=== PATIENT | male | born 1950 | race Caucasian/White ===

== ENCOUNTER 2016-10-10 13:27 | Observation (INO) | payer MEDICARE, OTHER ==
[2016-10-10] VITALS (7 sets, daily range): BP systolic 145–197; BP diastolic 79–112; PULSE 65–86; RESP 18–20; O2SAT 93–99
[~2016-10-10] VITALS: Ht 185.4 cm; Wt 111.5 kg
--- NOTE | 2016-10-10 13:34 | ED.REPORT ---
HPI-Stroke / CVA Oct 10, 2016 ED Provider: Grey Carr Patient is a 65 year old male who presents to the ED via EMS complaining of a possible stroke. At 1230 today he felt his R jaw start to go numb. The numbness progressed up his face and EMS measured his BP consistently over 200. He denies chest pain, headache, lightheadedness, or any other symptoms. His father had a stroke at age 62. He took 2 full strength aspirin at 1235. Nursing Notes Stated Complaint: POSSIBLE STROKE Nursing Notes Reviewed: Yes Allergies: Coded Allergies: Qnhwtbf-[id number]-Nfu Reductase Inhibitor (Verified Allergy, Unknown, 10/10/16) Scheduled Aspirin (Aspirin) 81 Mg Tablet 81 MG PO DAILY (Reported) Fenofibrate Nanocrystallized (Fenofibrate) 145 Mg Tablet 160 MG PO DAILY ( Reported) Lisinopril (Lisinopril) 20 Mg Tablet 20 MG PO DAILY (Reported) Scheduled PRN Methocarbamol (Methocarbamol) 750 Mg Tablet 750 MG PO QID PRN PRN For Spasm ( Reported) oxyCODONE (oxyCODONE) 5 Mg Tablet 5 MG PO Q4H PRN PRN For Pain (Reported) Miscellaneous Medications Docusate Calcium (Stool Softener) 240 Mg Capsule 240 MG PO (Reported) Om-3/Dha/Epa/Fish Oil/Vit D3 (Fish Oil + Vitamin D-3 Softgel) 1 Each Capsule 1 EACH PO (Reported) Polyethylene Glycol 3350 (Miralax) 17 Gm Powd.pack 17 GM PO (Reported) Sildenafil Citrate (Sildenafil) 20 Mg Tablet 100 MG PO (Reported) General Time Seen by Provider: 13:34 Chief Complaint Numbness Face right Hx Obtained From: Patient, EMS Arrived By: Ambulance Time last known well 1230 Sudden in Onset?: Yes Progression Since Onset: Gradually improving Risk Factors TPA was not indicated due to a stroke scale score of zero. 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) Horizontal EO Movements: None (0) Visual Akins: No visual loss (0) Facial Palsy: Normal symmetry (0) Right Arm Motor Drift (10s): No drift 10 sec (0) Left Arm Motor Drift (10s): No drift 10 sec (0) Right Leg Motor Drift (5s): No drift 5 sec (0) Left Leg Motor Drift (5s): No drift 5 sec (0) Limb Ataxia FNF/Heel-Edan: No ataxia (0) Sensation (Arms/Legs/Face): No sensory loss (0) Language Aphasia: No aphasia, normal (0) Dysarthria: No dysarthria, normal (0) NIHSS Score: 0 Time NIHSS Performed: 13:46 Date NIHSS Performed: Oct 10, 2016 )( CVA Risk Stratification Age >60 EtOH use Hyperlipidemia HypertensionNo Anticoag/bleed diathesis, No Atrial fibrillation, No Clotting disorder, No Diabetes mellitus, No Oral contraceptive, No Prior CVA/TIA, No Smoking Risk factors reviewed Past Medical History Past Medical History Reports: Hyperlipidemia, Hypertension, Denies: Cancer, Congestive heart failure, Coronary artery disease, Diabetes mellitus Past Surgical History Denies Smoking History Unknown if Ever Smoker Social History Alcohol Use: "Social" Drug Use: Denies drug use Other Social History: Good social support, Ambulatory Status Independent Review of Systems Cardiovascular: Denies: Chest pain Neurologic: Reports: Numbness (R face), Denies: Headache, Lightheaded Complete sys rev & neg: except as marked. Physical Exam Initial Vital Signs Vital Signs (First) Date Time Temp Pulse Resp B/P Pulse Ox O2 Delivery O2 Flow Rate FiO2 10/10/16 13:52 36.6 86 20 197/112 99 Nasal Cannula 2 Initial VS: Reviewed, Vital signs abnormal Abdomen / GI: Soft, Non-tender Skin: Warm, Dry Psychiatric: Mood/affect normal, Behavior normal, Normal thought content General/Constitutional: Awake, Alert, Well developed Behavior: Positive: Anxious Head / Eyes: Atraumatic, Normocephalic, PERRL, EOMI, No nystagmus Neck: Atraumatic, Supple, Full range of motion Respiratory / Chest: No respiratory distress Cardiovascular: Heart rate NL, Regular rhythm, Heart sounds NL Neurologic: Oriented X3, Speech NL Interpretation & Diagnostics Lab Results Interpretation Result Diagram: 10/10/16 1345 10/10/16 1345 Test 10/10/16 13:45 White Blood Count 5.5th/mm3 (3.8-10.1) Red Blood Count 5.01mil/mm3 (4.40-5.80) Hemoglobin 14.7g/dL (13.8-17.2) Hematocrit 45.0% (41.0-50.0) Mean Corpuscular Volume 89.8fL (81-100) Mean Corpuscular Hemoglobin 29.3pg (27.0-35.0) Mean Corpuscular Hemoglobin Concent 32.7% (32.0-37.0) Red Cell Distribution Width 13.6% (12.3-15.4) Platelet Count 235bil/L (150-400) Neutrophils (%) (Auto) 50.1% (40-74) Lymphocytes (%) (Auto) 33.6% (14-46) Monocytes (%) (Auto) 10.8% (4-12) Eosinophils (%) (Auto) 4.2% (0-5) Basophils (%) (Auto) 0.9% (0-3) Prothrombin Time 10.3sec (8.1-12.5) Prothromb Time International Ratio 0.96ratio Activated Partial Thromboplast Time 27.3sec (22.8-33.0) Sodium Level 139mEq/L (134-144) Potassium Level 4.2mEq/L (3.5-5.2) Chloride Level 101mEq/L (97-108) Carbon Dioxide Level 23mmol/L (18-29) Blood Urea Nitrogen 23mg/dL (8-27) Creatinine 1.07mg/dL (0.76-1.27) Estimat Glomerular Filtration Rate 73mL/min (>59) Glucose Level 131mg/dL (60-99) Calcium Level 9.3mg/dL (8.5-10.1) Total Bilirubin 0.4mg/dL (0.0-1.2) Aspartate Amino Transf (AST/SGOT) 24U/L (0-50) Alanine Aminotransferase (ALT/SGPT) 26U/L (0-44) Alkaline Phosphatase 62U/L (25-160) Troponin T < 0.010ug/L (0.0-0.011) Total Protein 7.0g/dL (6.4-8.4) Albumin 4.3g/dL (3.4-5.0) Hold Pappas Top Tube Received (Received) ECG Interpretation ECG Interpretation: Sinus rate 67 Probable left atrial enlargement Abnormal R-wave progression, early transition Time: 14:20 Interpreted by: ED physician CT Head Interpretation CT BRAIN: IMPRESSION: No acute intracranial abnormalities. Findings were discussed with Dr. Carr by telephone at 1348 hr on 10/10/2016. This study fulfills neurological imaging criteria for inclusion or exclusion of acute stroke therapies based on available published neurological imaging guidelines. Dictated by: Jack Zamarripa M.D. on 10/10/2016 at 13:47 Approved by: Jack Zamarripa M.D. on 10/10/2016 at 13:49 Study: Head CT no contrast Interpretation / Wet Read by: Interpret - Radiologist Re-Eval/Medical Decision Re-Evaluation/Progress : Time of Eval: 15:04 )( Re-Eval Neurologic Exam: Alert Re-Evaluation/Progress Note: Discussed plan for discharge. Patient understands and agrees with plan. All questions addressed at this time. Consultation : Referral / Consult Name: Hieu Kat Consulted With: Hospitalist Call Returned at: 14:53 Hand Sprayer: Will see patient, Agrees with eval, Agrees with plan, Accepts admit Note: Discussed patient's case. Accepts admit. Counseled Regarding: Diagnosis, Lab results, Need for admission Patient Discharge & Departure Impression: Primary Impression: Right facial numbness Additional Impression: Stroke Disposition: ADMITTED TO HOSPITAL Referrals: Dean Scott MD (PCP) Sahil Muller MD Scribe Attestation Portions of this note were transcribed by Marysol Verduzco. I, Dr. Carr personally performed the history, physical exam and medical decision-making; I reviewed and confirmed the accuracy of the information in the transcribed note. Signed by: Marysol Verduzco 10/10/2016, [id number] copies to: Sahil Muller MD, Kirk H MD Oct 10, 2016 13:34 MARYSOL VERDUZCO Oct 10, 2016 13:54
[2016-10-10] MEDS ORDERED: Labetalol 5 mg/mL 4 mL Inj IVPUSH ONE (13:40)
--- NOTE | 2016-10-10 13:51 | DRSVH ---
PROCEDURE: CT BRAIN (TPA) ([id number]) INDICATIONS: 65-year-old male with stroke symptoms. TECHNIQUE: Noncontrast 4.5 mm thick angled axial sections acquired from the foramen magnum to the vertex, with c oronal reformats. COMPARISON: None. FINDINGS: Image quality: Excellent. CSF spaces: Basal cisterns are patent. No extra-axial fluid collections. Ventricles are normal in size and shape. Brain: No midline shift. No intracranial masses or hemorrhage. Charles-white matter interface is norm al. Skull and face: Calvarium and visualized facial bones are intact, without suspicious lesions. Sinuses: Visualized sinuses and mastoids are clear. IMPRESSION: No acute intracranial abnormalities. Findings were discussed with Dr. Carr by telephone at 1348 hr on 10/10/2016. This study fulfills neurological imaging criteria for inclusion or exclusion of acute stroke therapie s based on available published neurological imaging guidelines. Dictated by: Jack Zamarripa M.D. on 10/10/2016 at 13:47 Approved by: Jack Zamarripa M.D. on 10/10/2016 at 13:49
[2016-10-10 14:02] LABS: BASOPHILS % (AUTO) 0.9 % (0-3); EOSINOPHILS % (AUTO) 4.2 % (0-5); MONOCYTES % (AUTO) 10.8 % (4-12); Mean Corpuscular Hemoglobin 29.3 pg (27.0-35.0); Mean Corpuscular Volume 89.8 fL (81-100); NEUTROPHILS % (AUTO) 50.1 % (40-74); Platelet Count 235 bil/L (150-400)
[2016-10-10 14:13] LABS: INR 0.96 ratio
[2016-10-10 14:20] LABS: TROPONIN T < 0.010 ug/L (0.0-0.011)
[2016-10-10] MEDS ORDERED: OM-31CAP9 PO (14:21)
[2016-10-10] MEDS ORDERED: ASPI-973 PO (14:21)
[2016-10-10] MEDS ORDERED: DOCU240C41 PO (14:21)
[2016-10-10] MEDS ORDERED: FENO145T19 PO (14:21)
[2016-10-10] MEDS ORDERED: METH750T3 PO (14:21)
[2016-10-10] MEDS ORDERED: SILD20TA14 PO (14:21)
[2016-10-10] MEDS ORDERED: POLY17PO6 PO (14:21)
[2016-10-10] MEDS ORDERED: OXYC5TAB72 PO (14:21)
[2016-10-10] MEDS ORDERED: LISI-567 PO (14:21)
[2016-10-10] MEDS ORDERED: Alum-Mag Hydrox-Simeth 30 mL Suspension PO PRN ×2 (14:55→16:30)
[2016-10-10] MEDS ORDERED: Ondansetron 2 mg/mL 2 mL Inj IVPUSH PRN (14:55)
[2016-10-10] MEDS ORDERED: hydrALAZINE 20 mg/mL Inj IVPUSH PRN (16:30)
[2016-10-10] MEDS ORDERED: Ondansetron 2 mg/mL 2 mL Inj IV PRN (16:30)
[2016-10-10] MEDS: Heparin 5,000 Unit/mL Inj SUBQ SCH (16:30)
[2016-10-10] MEDS ORDERED: Polyethylene Glycol (PEG) 17 Gm Powder PO PRN (16:30)
--- NOTE | 2016-10-10 17:42 | PCM.HPMED ---
Subjective Date of Service Oct 10, 2016 Primary Provider: Admitting Physician: Hieu Kat Primary Care Physician: Sahil Muller MD Attending Physician: Hieu Kat Chief Complaint: right facial numbness History of Present Illness: 65 year old male with history of hypertension and hyperlipidemia presents with report of acute and transient episode of right facial numbness. He was sitting at home when around noon time he started feeling some numbness on the right lower cheek that start spreading up just below his right eye and below the right jewish. Because of his father's history of stroke he became concerned and presented to the ED where his workup was fairly unremarkable and thus was not found to be a candidate for TPA. Patient notes that his symptom resolved spontaneously after about 2 hours. He otherwise denies any other associated symptoms and denies any prior such history. He further denies any new medications recently. On presentation to the ED he was noted to have significant hypertension (197/112 ). He received a dose of Labetalol 20mg IV x 1 with noted improvement in his BP. Allergies Coded Allergies: Cupuoog-Tpp-Kbm Reductase Inhibitor (Verified Allergy, Unknown, 10/10/16) Home Medications Fenofibrate Nanocrystallized 160 Mg PO DAILY Lisinopril 20 Mg PO DAILY 30 Days Om-3/Dha/Epa/Fish Oil/Vit D3 (Fish Oil + Vitamin D-3 Softgel) 1 Each PO Sildenafil Citrate 100 Mg PO Aspirin 81 Mg PO DAILY Docusate Calcium (Stool Softener) 240 Mg PO Polyethylene Glycol 3350 (Miralax) 17 Gm PO Exam Vital Signs & I/O Vital Sign- Last 8 Hours Date Time Temp Pulse Resp B/P Pulse Ox O2 Delivery O2 Flow Rate FiO2 10/10/16 16:15 65 10/10/16 15:44 36.8 65 20 173/82 93 Room Air 10/10/16 15:12 36.6 69 18 147/79 97 Nasal Cannula 2 10/10/16 14:13 69 18 153/90 97 Nasal Cannula 2 10/10/16 13:52 36.6 86 20 197/112 99 Nasal Cannula 2 Lab & Micro Results Laboratory Tests Test 10/10/16 13:45 White Blood Count 5.5th/mm3 (3.8-10.1) Red Blood Count 5.01mil/mm3 (4.40-5.80) Hemoglobin 14.7g/dL (13.8-17.2) Hematocrit 45.0% (41.0-50.0) Mean Corpuscular Volume 89.8fL (81-100) Mean Corpuscular Hemoglobin 29.3pg (27.0-35.0) Mean Corpuscular Hemoglobin Concent 32.7% (32.0-37.0) Red Cell Distribution Width 13.6% (12.3-15.4) Platelet Count 235bil/L (150-400) Neutrophils (%) (Auto) 50.1% (40-74) Lymphocytes (%) (Auto) 33.6% (14-46) Monocytes (%) (Auto) 10.8% (4-12) Eosinophils (%) (Auto) 4.2% (0-5) Basophils (%) (Auto) 0.9% (0-3) Prothrombin Time 10.3sec (8.1-12.5) Prothromb Time International Ratio 0.96ratio Activated Partial Thromboplast Time 27.3sec (22.8-33.0) Sodium Level 139mEq/L (134-144) Potassium Level 4.2mEq/L (3.5-5.2) Chloride Level 101mEq/L (97-108) Carbon Dioxide Level 23mmol/L (18-29) Blood Urea Nitrogen 23mg/dL (8-27) Creatinine 1.07mg/dL (0.76-1.27) Estimat Glomerular Filtration Rate 73mL/min (>59) Glucose Level 131mg/dL (60-99) Calcium Level 9.3mg/dL (8.5-10.1) Total Bilirubin 0.4mg/dL (0.0-1.2) Aspartate Amino Transf (AST/SGOT) 24U/L (0-50) Alanine Aminotransferase (ALT/SGPT) 26U/L (0-44) Alkaline Phosphatase 62U/L (25-160) Troponin T < 0.010ug/L (0.0-0.011) Total Protein 7.0g/dL (6.4-8.4) Albumin 4.3g/dL (3.4-5.0) Hold Pappas Top Tube Received (Received) Result Diagram: 10/10/16 1347 10/10/16 1341 Review of Systems: Constitutional: Negative, except as otherwise mentioned in the history above. Ophthalmologic: Negative, except as otherwise mentioned in the history above. Cardiovascular: Negative, except as otherwise mentioned in the history above. Respiratory: Negative, except as otherwise mentioned in the history above. Gastrointestinal: Negative, except as otherwise mentioned in the history above. Genitourinary: Negative, except as otherwise mentioned in the history above. Musculoskeletal: Negative, except as otherwise mentioned in the history above. Neurological: Negative, except as otherwise mentioned in the history above. Psychiatric: Negative, except as otherwise mentioned in the history above. Hematologic/Lymphatic: Negative, except as otherwise mentioned in the history above. Allergic/Immunologic: Negative, except as otherwise mentioned in the history above. PMH Hypertension Hyperlipidemia Psoriasis Family History mother with colon cancer in her 90's. Father with history of ischemic stroke. Social History Hx Alcohol Use: Yes (occassionally) Hx Substance Use: No Hx Tobacco Use: Yes Smoking Status: Former Smoker (quit 20 years ago) Exam Vital Signs Vital Sign - Last Date Time Temp Pulse Resp B/P Pulse Ox O2 Delivery O2 Flow Rate FiO2 10/10/16 16:15 65 10/10/16 15:44 36.8 20 173/82 93 Room Air 10/10/16 15:12 2 General: Alert, Oriented X3, Cooperative, No Acute Distress Head: Normal Eyes: PERRLA, EOMI, Scleral Anicteric Nose: Mucous Membr Moist/[place] Mouth: Mucous Membr Moist/[place] Neck: Supple Chest & Lungs: Chest Wall Normal, Clear to auscultation & percussion Cardiovascular: Regular Rate/Rhythm Pulses: NL carotid, radial, femoral, DP, PT Abdomen: Non-tender, Non-distended, Normoactive bowel tones, Soft Extremities: No cyanosis/clubbing/edma bilat Skin: Other (psoriatic rash on legs bilat) Neurological: Grossly Neurologically Intact, Cranial Nerves 2-12 Intact, Normal Speech, Strength Normal 4/4 ext, Sensation Intact Lab and Diagnostics Result Diagram: 10/10/16 1345 10/10/16 1345 X-Rays, CTs and MRIs Date of Service: 10/10/16 1333 PROCEDURE: CT BRAIN (TPA) ([id number]) IMPRESSION: No acute intracranial abnormalities. Findings were discussed with Dr. Carr by telephone at 1348 hr on 10/10/2016. This study fulfills neurological imaging criteria for inclusion or exclusion of acute stroke therapies based on available published neurological imaging guidelines. Dictated by: Jack Zamarripa M.D. on 10/10/2016 at 13:47 Approved by: Jack Zamarripa M.D. on 10/10/2016 at 13:49 12-lead ECG NSR at about [address] elevation/depression. no old EKG for comparison. Assessment & Plan 65 year old male with history of hypertension and hyperlipidemia presents with report of acute and transient episode of right facial numbness. # Acute hypertensive emergency with associated neurologic symptom (as noted below) and known history of hypertension. present on admission. Improved - allow permissive hypertension for now given possibility of acute CVA vs TIA - IV Hydralazine prn per protocol # Acute right facial numbness, present on admission. Resolved. - Unclear etiology but possible TIA vs medication side effect (namely, Sildenafil) vs other - check MRI brain, echo, carotid U/S - Lipitor 40 tonight and check fasting lipid (statin listed as pt's allergy but he says he thinks he was getting joint pain with statin in the past) - He takes baby ASA at baseline will increase to full dose ASA and may consider switching to Plavix if evidence of stroke on MRI - permissive hypertension as noted above - PT/OT consult - f/u on Tele # Hyperlipidemia - Lipitor and fasting lipid panel as noted above # History of psoriasis. stable Expected length of hospital stay less than 2 midnights and likely home tomorrow. GI Prophylaxis: Not indicated VTE Prophylaxis: Sub-Q Heparin (Unfractionated) Resuscitation Status: CPR: Attempt Resuscitation (discussed and verified with patient) Time spent 60 min Hieu Kat Oct 10, 2016 17:42
--- NOTE | 2016-10-10 18:20 | NUR ---
EKATERINA explained and signed. Copy of EKATERINA and Medicare self administered medication information provided.
--- NOTE | 2016-10-10 18:51 | NUR ---
Admission Admit to room 3008 from ER with at bedside. A&O, SL, RA, no deficits noted and steady on feet. Provider notified and assessed. Admission assessments and med rec completed. Tele monitoring applied. Oriented to room and call light. Board updated with plan of care. Pt comfortable at this time.
[2016-10-11] MEDS: Heparin 5,000 Unit/mL Inj SUBQ SCH ×3 (00:11→17:03)
[2016-10-11 00:23] VITALS: BP 188/98; PULSE 70; RESP 18; O2SAT 98
--- NOTE | 2016-10-11 06:05 | NUR ---
Neuro Pt is alert and oriented x4. Noted no facial droop/numbness PERRLA, no slurring of speech or tongue deviation. 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 Denies chest pain, sob, n/v or abd discomfort. Pt currently on pureed nectar thick per RN swallow eval until speech therapy follows. Hourly rounding done and pt has slept most of the night.
[2016-10-11 06:10] VITALS: BP 167/95; PULSE 74; RESP 18; O2SAT 96
[2016-10-11 06:16] LABS: Mean Corpuscular Hemoglobin 29.3 pg (27.0-35.0); Mean Corpuscular Volume 88.8 fL (81-100)
[2016-10-11 06:32] LABS: Magnesium 2.1 mg/dL (1.6-2.6)
--- NOTE | 2016-10-11 08:38 | NUR ---
Evaluation completed. Please go to "Notes" then click on "Assessments and Notes" (bottom left corner of screen). Then select appropriate discipline tab on top of screen.
--- NOTE | 2016-10-11 08:51 | DRSVH ---
PROCEDURE: US BILATERAL DUPLEX DOPPLER IMAGING OF THE CAROTIDS ([id number]) INDICATIONS: Evaluate stroke follow up TECHNIQUE: Color and pulse Doppler interrogation was performed of both carotid systems, with image documentation and velocity measurements. COMPARISON: None. FINDINGS: All stenosis calculations are based on NASCET criteria. Right side: Brachial blood pressure: 167/95 mm Hg. Common Carotid Artery(Distal) PSV: 75.90 cm/s Internal Carotid Artery PSV- Proximal: 70.80 cm/s Mid-lon.90 cm/s Distal: 76.10 cm/s EDV - Proximal: 15.70 cm/s Mid-lon.50 cm/s Distal: 22.70 cm/s External Carotid Artery(Proximal) PSV: 107.60 cm/s ICA/CCA PSV ratio: 1.0 Charles scale imaging description: Moderate plaque. Percent internal carotid artery stenosis: Less than 50%. Vertebral artery: Flow direction is antegrade. Left side: Brachial blood pressure: Not obtained secondary to IV site. Common Carotid Artery(Distal) PSV: 64.80 cm/s Internal Carotid Artery PSV - Proximal: 69.80 cm/s Mid-lon.50 cm/s Distal: 101 cm/s EDV - Proximal: 18.90 cm/s Mid-lon.70 cm/s Distal: 33.40 cm/s External Carotid Artery(Proximal) PSV: 97.80 cm/s ICA/CCA PSV ratio: 1.6 Charles scale imaging description: Moderate plaque Percent internal carotid artery stenosis: Less than 50% stenosis. Vertebral artery: Flow direction is antegrade. IMPRESSION: Less than 50% bilateral internal carotid artery stenosis. Dictated by: Trent Guallpa [facility] Interpreted: Bindu Medina MD on 10/11/2016 at 8:50 Transcribed by: BRYCE on 10/11/2016 at 8:51 Approved by: Bindu Medina MD, PhD on 10/11/2016 at 9:58
[2016-10-11] MEDS ORDERED: 0.9% Sodium Chloride 250 ML ONE (08:55)
--- NOTE | 2016-10-11 09:19 | NUR ---
Evaluation completed. Please go to "Notes" then click on "Assessments and Notes" (bottom left corner of screen). Then select appropriate discipline tab on top of screen.
[2016-10-11 10:01] VITALS: PULSE 60
[2016-10-11 10:18] VITALS: BP 160/86; PULSE 76; RESP 18; O2SAT 96
--- NOTE | 2016-10-11 10:49 | NUR ---
PT NOTE-- OT evaluated and no PT needs identified at this time. Will F/U if MRI indicates acute CVA or if MD writes new order.
--- NOTE | 2016-10-11 12:36 | DRSVH ---
[facility] [address] [place] [place] [address] Echocardiogram Report Name: MUNIR STREETER te: 10/11/2016 Height: 63 in Hospital Exam Location: [facility] Weight: 245 lb Gender: Male BSA: 2.1 m2 : 1950 Age: 65 yrs BP: 160/86 mmHg Reason For Study: CVA Ordering Physician: Performed [facility]: [facility] Interpretation Summary The left ventricle is normal in size, wall thickness, and systolic function without any focal wall motion abnormalities. The ejection fraction is estimated to be 60-65%. The right ventricle is normal in size, thickness and function. There is a trace or physiologic amount of tricuspid regurgitation. The left atrium is mildly dilated. The right atrium is mild to moderately dilated. There is no significant valvular heart disease. The aortic root is mildly dilated. The ascending aorta is mildly enlarged. There is no obvious cardiac source of embolus noted on this transthoracic echocardiogram. Procedure: A two-dimensional transthoracic echocardiogram with color flow and Doppler was performed. The study quality was technically adequate. There is no prior echocardiogram noted for this patient. The patient was in normal sinus rhythm during the exam. Left Ventricle: The left ventricle is normal in size, wall thickness, and systolic function without any focal wall motion abnormalities. The ejection fraction is estimated to be 60-65%. The E/A ratio is reversed, suggesting impaired early relaxation of the left ventricle or a reduced preload state. Right Ventricle: The right ventricle is normal in size, thickness and function. Atria: The left atrium is mildly dilated. The right atrium is mild to moderately dilated. The interatrial septum is intact with no evidence for an atrial septal defect. Mitral Valve: The mitral valve is normal in structure and function. There is no mitral regurgitation noted. Aortic Valve: The aortic valve opens well. No aortic regurgitation is present. Tricuspid Valve: The tricuspid valve is normal in structure and function. There is a trace or physiologic amount of tricuspid regurgitation. Pulmonic Valve: The pulmonic valve is normal in structure and function. There is trace pulmonic regurgitation. There is no significant valvular heart disease. Great Vessels: The aortic root is mildly dilated. The ascending aorta is mildly enlarged. The IVC is of normal diameter and collapses greater than 50% with a sniff. This suggests a low right atrial pressure of 3 mm Hg. Pericardium/ Pleura There is no pericardial effusion. There is no pleural effusion. MMode/2D Measurements & Calculations LVIDd: 5.1 cm LA dimension: 4.2 cm RA long axis Ao root diam LVIDs: 3.0 cm FS: 41.4 % LA A2 area: 24.5 cm RA area Aortic Jxn: 3.5 cm IVSd: 1.1 cm LA A4 area: 26.2 cm asc Aorta Diam LVPWd: 1.0 cm LA length (vol) : 25.1 cm RA vol Ao Arch Diam (Prox LA vol: 80.6 ml : 86.0 ml Trans): 3.3 cm LA vol index RA : 40.8 mm/ RVDd major IVC diam: 2.0 cm : 6.5 cm LV gregory. diameter/BSA LV sys. diameter/BSA RVD1 (basal) RVD2 (mid): 3.4 cm (cm/m^2): 2.4 (cm/m^2): 1.4 Doppler Measurements & Calculations Ao V2 max MV E max josé miguel MV E/A: 0.47 PA V2 max : 135.7 cm/sec : 44.5 cm/sec Med Peak E' José Miguel : 95.2 cm/sec Ao max PG MV A max josé miguel PA mean PG : 7.4 mmHg : 94.5 cm/sec E/E' med: 6.3 Ao mean PG MV P1/2t: 109.2 msec Lat Peak E' José Miguel PA Accel Time : 3.2 mmHg : 0.12 sec E/E' lat: 5.9 E/e' average: 6.1 MV A dur: 0.14 sec MV dec time MV P1/2t max josé miguel Ao V2 mean PA V2 mean : 0.37 sec : 79.2 cm/sec : 66.2 cm/sec MVA(P1/2t): 2.0 cm2 Ao V2 VTI: 23.7 cm Reading Physician:JAMARCUS
--- NOTE | 2016-10-11 13:11 | NUR ---
Social Work-initial assessment/ readiness for discharge: Data:See initial assessment. Pt is a 65 y/o male who was admitted on 10/10/16 for CVA per H&P. Pt's insurance is [employer] and PCP is Sahil Muller MD.EMR reviewed. Pt's readmission score is 0. SW met with pt and Elly at bedside to discuss discharge planning, SW role explained. Pt is alert and oriented x3. Pt resides at home with his in [place] where he remains independent with ADLS. Pt drives and does not use any DME. Pt has no penitentiary care or VA benefits. Pt has no history of HH or SNF. PT/ST/ OT have cleared pt for home no needs. SW discussed DPOA/ advanced directive, pt states he has completed Will, but is interested in paperwork, which SW has provided. PT's will be the one to provide transport home. SW placed phone number and plan on white board in room. No anticipated discharge needs. SW will continue to follow if needs arise. Assessment:Pt who is independent at baseline. Plan:Pt to discharge home when medically stable via POV. No anticipated discharge needs. SW will continue to follow if needs arise. BRAYDON Amaro Addendum: 10/11/16 at 1316 by RACHAEL CABRALES Amended: Links added.
[2016-10-11 13:29] VITALS: BP 149/89; PULSE 79; RESP 18; O2SAT 96
--- NOTE | 2016-10-11 13:42 | NUR ---
Telemetry: Notified by technical account executive that patient had increase in HR to 140s w/PVCs for approx 4-5 minutes. Returned to SR 70s. Patient states he experienced SOB and lightheadedness during episode. Sitting on side of bed at that time. BP 149/89. notified via text page.
--- NOTE | 2016-10-11 15:44 | NUR ---
Off Unit: Patient transported to MRI via wheelchair accompanied by transporter at approx 1545. information technology assistant notified.
--- NOTE | 2016-10-11 16:45 | DRSVH ---
PROCEDURE: MRI BRAIN WITHOUT CONTRAST ([id number]) INDICATIONS: RIGHT FACIAL NUMBNESS TECHNIQUE: Non-contrast axial T1 spin echo, axial T2 fast spin echo, sagittal and axial FLAIR, coronal T2 fast s pin echo, axial gradient echo, axial diffusion and ADC through the brain. COMPARISON: [facility], CT, BRAIN (TPA), 10/10/2016, 13:38. FINDINGS: Image quality: Excellent. CSF spaces: Ventricles appear symmetric in size and shape. Basal cisterns are patent. No extra-axi al fluid collections. Brain: No intracranial bleeds or mass effects. There is cerebral volume loss for age. There are pe riventricular and deep white matter chronic small vessel ischemic changes. Brainstem appears normal. Diffusion-weighted images show no acute ischemic insults. No chronic ischemic insults. Normal int ravascular flow voids are present. Skull and face: Calvarial bone marrow is normal in signal. Orbits are normal. Sinuses: Sinuses and mastoids are clear. IMPRESSION: 1. No acute intracranial abnormality. No recent infarct. 2. Mild volume loss and small vessel ischemic disease. Dictated by: Erika Villegas M.D. on 10/11/2016 at 16:41 Approved by: Erika Villegas M.D. on 10/11/2016 at 16:43
--- NOTE | 2016-10-11 16:46 | DRSVH ---
PROCEDURE: MRA ANGIOGRAM HEAD WITHOUT CONTRAST ([id number]) INDICATIONS: RIGHT FACIAL NUMBNESS TECHNIQUE: Noncontrast axial 3-D [id number] MR angiogram, with 3-dimensional maximum intensity projection (M IP) reformats of the internal carotid arteries and posterior circulation then performed. COMPARISON: None. FINDINGS: Image quality: Excellent. Anterior circulation: Intracranial internal carotid arteries demonstrate normal size and intralumina l flow signal. The flow within the paired anterior cerebral arteries is normal and symmetric. The f low within the middle cerebral arteries is normal and symmetric. The anterior communicating artery i s seen. No stenoses, occlusions, or aneurysms. Posterior circulation: Visualized portions of the vertebral arteries demonstrate normal caliber, and join to form a normal appearing basilar artery. The flow within the posterior cerebral arteries is normal and symmetric. No stenoses, occlusions, or aneurysms. IMPRESSION: Negative cerebral MR angiography. Dictated by: Erika Villegas M.D. on 10/11/2016 at 16:43 Approved by: Erika Villegas M.D. on 10/11/2016 at 16:44
[2016-10-11] MEDS ORDERED: ASPI325T32 PO (17:02)
--- NOTE | 2016-10-11 17:06 | PCM.DIMED ---
Discharge Instructions Date of Service Oct 11, 2016 Dates of Hospitalization Oct 10, 2016 at 15:21 Discharge Diagnosis Discharge Diagnosis # Acute hypertensive emergency with associated neurologic symptom (as noted below) and known history of hypertension. present on admission. Improved # Acute right facial numbness, present on admission. Resolved. - Unclear etiology but possible transient ischemic attack (TIA) vs medication side effect (namely, Sildenafil) vs other # Hyperlipidemia (Triglyceride: 207, Cholesterol: 197, LDL: 109, HDL:46) # History of psoriasis. stable Diet Low fat, Low Sodium, Heart Healthy Activity No restrictions Call your provider Fever or Chills, Shortness of breath, Bleeding, Chest pain, Weakness (unilateral ) Patient Instructions Seek immediate medical attention if any new or worsening signs or symptoms occur. Follow-up plan 1. Followup with primary care provider in 3-4 days and to discuss possible further treatment with Statins Follow-up Provider: Sahil Muller MD, [place] Oct 11, 2016 17:06
--- NOTE | 2016-10-11 17:13 | PCM.DC.MED ---
Discharge Summary Date of Service Oct 11, 2016 Dates of Hospitalization Date of Hospital Admission Oct 10, 2016 at 15:21 Date of Discharge: Oct 11, 2016 Providers: Admitting Physician: Hieu Eddy Primary Care Physician: Sahil Muller MD Attending Physician: Hieu Eddy Diagnosis at Time of Discharge Diagnosis at Time of Discharge # Acute hypertensive emergency with associated neurologic symptom (as noted below) and known history of hypertension. present on admission. Improved # Acute right facial numbness, present on admission. Resolved. - Unclear etiology but possible transient ischemic attack (TIA) vs medication side effect (namely, Sildenafil) vs other # Hyperlipidemia (Triglyceride: 207, Cholesterol: 197, LDL: 109, HDL:46) # History of psoriasis. stable Procedures XRay, CTs & MRIs Date of Service: 10/10/16 1333 PROCEDURE: CT BRAIN (TPA) ([id number]) IMPRESSION: No acute intracranial abnormalities. Findings were discussed with Dr. Carr by telephone at 1348 hr on 10/10/2016. This study fulfills neurological imaging criteria for inclusion or exclusion of acute stroke therapies based on available published neurological imaging guidelines. Dictated by: Jack Zamarripa M.D. on 10/10/2016 at 13:47 Approved by: aJck Zamarripa M.D. on 10/10/2016 at 13:49 Date of Service: 10/11/16 0902 PROCEDURE: MRA ANGIOGRAM HEAD WITHOUT CONTRAST ([id number]) IMPRESSION: Negative cerebral MR angiography. Dictated by: Erika Villegas M.D. on 10/11/2016 at 16:43 Approved by: Erika Villegas M.D. on 10/11/2016 at 16:44 Date of Service: 10/11/16 09 PROCEDURE: MRI BRAIN WITHOUT CONTRAST ([id number]) IMPRESSION: 1. No acute intracranial abnormality. No recent infarct. 2. Mild volume loss and small vessel ischemic disease. Dictated by: Erika Villegas M.D. on 10/11/2016 at 16:41 Approved by: Erika Villegas M.D. on 10/11/2016 at 16:43 ECG 12 Lead NSR at about [address] elevation/depression. no old EKG for comparison. Cardiac Echo Impression Date of Service: 10/11/16 1356 Echocardiogram Report Interpretation Summary The left ventricle is normal in size, wall thickness, and systolic function without any focal wall motion abnormalities. The ejection fraction is estimated to be 60-65%. The right ventricle is normal in size, thickness and function. There is a trace or physiologic amount of tricuspid regurgitation. The left atrium is mildly dilated. The right atrium is mild to moderately dilated. There is no significant valvular heart disease. The aortic root is mildly dilated. The ascending aorta is mildly enlarged. There is no obvious cardiac source of embolus noted on this transthoracic echocardiogram. Reading Physician:PM Other Diagnostics Date of Service: 10/11/16 8807 PROCEDURE: US BILATERAL DUPLEX DOPPLER IMAGING OF THE CAROTIDS ([id number]) IMPRESSION: Less than 50% bilateral internal carotid artery stenosis. Dictated by: Trent Guallpa [facility] Interpreted: Bindu Medina MD on 10/11/2016 at 8 :50 Transcribed by: BRYCE on 10/11/2016 at 8:51 Approved by: Bindu Medina MD, PhD on 10/11/2016 at 9:58 Brief History 65 year old male with history of hypertension and hyperlipidemia presents with report of acute and transient episode of right facial numbness. He was sitting at home when around noon time he started feeling some numbness on the right lower cheek that start spreading up just below his right eye and below the right amish. Because of his father's history of stroke he became concerned and presented to the ED where his workup was fairly unremarkable and thus was not found to be a candidate for TPA. Patient notes that his symptom resolved spontaneously after about 2 hours. He otherwise denies any other associated symptoms and denies any prior such history. He further denies any new medications recently. On presentation to the ED he was noted to have significant hypertension (197/112 ). He received a dose of Labetalol 20mg IV x 1 with noted improvement in his BP. Hospital Course # Acute hypertensive emergency with associated neurologic symptom (as noted below) and known history of hypertension. present on admission. Improved - allow permissive hypertension for now given possibility of acute CVA vs TIA - IV Hydralazine prn per protocol # Acute right facial numbness, present on admission. Resolved. - Unclear etiology but possible TIA vs medication side effect (namely, Sildenafil) vs other - CT brain, MRI brain, carotid U/S, and echo all unremarkable (as noted above) - will change baby ASA to full dose ASA on discharge # Hyperlipidemia - patient says unable to tolerate Statins in the past. will defer further f/u and management to PCP as outpatient # History of psoriasis. stable by day of d/c lungs CTA bilat. neuro exam non-focal with CN II-XII intact Exam Vital Signs (Last) Date Time Temp Pulse Resp B/P Pulse Ox O2 Delivery O2 Flow Rate FiO2 10/11/16 13:29 36.7 79 18 149/89 96 Room Air 10/10/16 15:12 2 Test 10/10/16 13:45 10/11/16 05:25 Neutrophils (%) (Auto) 50.1% (40-74) Lymphocytes (%) (Auto) 33.6% (14-46) Monocytes (%) (Auto) 10.8% (4-12) Eosinophils (%) (Auto) 4.2% (0-5) Basophils (%) (Auto) 0.9% (0-3) Prothrombin Time 10.3sec (8.1-12.5) Prothromb Time International Ratio 0.96ratio Activated Partial Thromboplast Time 27.3sec (22.8-33.0) Total Bilirubin 0.4mg/dL (0.0-1.2) Aspartate Amino Transf (AST/SGOT) 24U/L (0-50) Alanine Aminotransferase (ALT/SGPT) 26U/L (0-44) Alkaline Phosphatase 62U/L (25-160) Troponin T < 0.010ug/L (0.0-0.011) Total Protein 7.0g/dL (6.4-8.4) Albumin 4.3g/dL (3.4-5.0) Hold Pappas Top Tube Received (Received) White Blood Count 5.7th/mm3 (3.8-10.1) Red Blood Count 4.74mil/mm3 (4.40-5.80) Hemoglobin 13.9g/dL (13.8-17.2) Hematocrit 42.1% (41.0-50.0) Mean Corpuscular Volume 88.8fL (81-100) Mean Corpuscular Hemoglobin 29.3pg (27.0-35.0) Mean Corpuscular Hemoglobin Concent 33.0% (32.0-37.0) Red Cell Distribution Width 13.2% (12.3-15.4) Platelet Count 203bil/L (150-400) Sodium Level 138mEq/L (134-144) Potassium Level 4.1mEq/L (3.5-5.2) Chloride Level 101mEq/L (97-108) Carbon Dioxide Level 24mmol/L (18-29) Blood Urea Nitrogen 21mg/dL (8-27) Creatinine 1.01mg/dL (0.76-1.27) Estimat Glomerular Filtration Rate 78mL/min (>59) Glucose Level 93mg/dL (60-99) Calcium Level 8.7mg/dL (8.5-10.1) Magnesium Level 2.1mg/dL (1.6-2.6) Triglycerides Level 207mg/dL (0-149) Cholesterol Level 197mg/dL (100-199) LDL Cholesterol, Calculated 109.600mg/dL (0-99) VLDL Cholesterol 41.400mg/dL HDL Cholesterol 46mg/dL (>39) Cholesterol/HDL Ratio 4.28 (0.0-4.4) Discharge Medications Discharge Medications Aspirin (Aspirin) 325 Mg Tablet 325 MG PO DAILY Prescribed by: HIEU EDDY MD Fenofibrate Nanocrystallized (Fenofibrate) 145 Mg Tablet 160 MG PO DAILY ( Reported) Lisinopril (Lisinopril) 20 Mg Tablet 20 MG PO DAILY (Reported) Miscellaneous Medications Om-3/Dha/Epa/Fish Oil/Vit D3 (Fish Oil + Vitamin D-3 Softgel) 1 Each Capsule 1 EACH PO (Reported) Sildenafil Citrate (Sildenafil) 20 Mg Tablet 100 MG PO (Reported) Followup Plan Disposition: Home Follow-up plan 1. Followup with primary care provider in 3-4 days and to discuss possible further treatment with Statins Discharge Diet: Low fat, Low Sodium, Heart Healthy Discharge Activity: No restrictions Patient Instructions Seek immediate medical attention if any new or worsening signs or symptoms occur. Follow-up Provider: Sahil Muller MD Time spent 35 min copies to: Sahil Muller MD, [place] Oct 11, 2016 17:13 Hieu Eddy Oct 11, 2016 17:13
--- NOTE | 2016-10-11 17:56 | NUR ---
Discharge: Patient discharged to home @ approx 1800. IV d/c'd intact, telemetry removed, teletypesetter monitor notified. Personal belongings sent home with patient. Reviewed new prescription, home medication list, d/c instructions, and follow up appointments. Verbalized understanding. Ambulated to main entrance accompanied by and RN.
== END 2016-10-11 17:50 | disposition home or self-care (01) ==
LOC: SED 13:27 → EDBD 13:27 → SED 15:13 → INTOOBSV 15:21 → MPC 15:21
PROVIDERS: ADMIT Internal Medicine; ATTEND Internal Medicine
DX: I10 Essential (primary) hypertension (principal); R20.0 Anesthesia of skin; E78.5 Hyperlipidemia, unspecified; L40.9 Psoriasis, unspecified; Z87.891 Personal history of nicotine dependence; Z79.82 Long term (current) use of aspirin
CPT/HCPCS: 36415; 70450; 70544; 70551; 80048; 80053; 80061; 83036; 83735; 84484; 85025; 85027; 85610; 85730; 92610; 93005; 93880; 96374; 97165; 99285; C8929; G0378; G8996; G8997; G8998; J1644; J7050